=== PATIENT | male | born 1975 | race Caucasian/White ===

== ENCOUNTER 2018-05-14 20:55 | Emergency (ER) | payer SELFPAY, OTHER ==
[2018-05-14] MEDS: KETOROLAC 60 MG INJ IM (22:37)
[2018-05-14 23:02] LABS: ADD UMIC NO; UR ASCORBIC ACID NEGATIVE (NEGATIVE); UR BILIRUBIN (Dip) NEGATIVE (NEGATIVE); UR BLOOD (Dip) NEGATIVE (NEGATIVE); UR CLARITY SLIGHTLY CLOUDY (CLEAR); UR COLOR YELLOW (YELLOW); UR GLUCOSE (Dip) NEGATIVE (NEGATIVE); UR KETONES (Dip) NEGATIVE (NEGATIVE); UR LEUKOCYTE ESTERASE (Dip) NEGATIVE Leu/ul (NEGATIVE); UR NITRITE (Dip) NEGATIVE (NEGATIVE); UR RBC 1 /HPF (0-5); UR SPECIFIC GRAVITY (Dip) 1.013 (1.003-1.030); UR TOTAL PROTEIN (Dip) NEGATIVE (NEGATIVE); UR UROBILINOGEN (Dip) NEGATIVE (NEGATIVE); UR WBC 2 /HPF (0-5)
== END 2018-05-15 00:43 | disposition home or self-care (01) ==
LOC: FTE 05-15 00:43
DX: M54.40 Lumbago with sciatica, unspecified side (principal); G89.29 Other chronic pain; F17.210 Nicotine dependence, cigarettes, uncomplicated
CPT/HCPCS: 72040; 72100; 81001; 81003; 96372; 99284-25

== ENCOUNTER 2018-09-13 05:49 | Emergency (ER) | payer SELFPAY | END 2018-09-13 07:59 | disposition left against medical advice (07) | LOC: E/R 05:49 | DX: Z53.21 Procedure and treatment not carried out due to patient leaving prior to being seen by health care provider (principal) ==

== ENCOUNTER 2018-09-13 08:15 | Emergency (ER) | payer MEDICAID ==
[2018-09-13 09:19] LABS: ADD MAN DIFF? NO
[2018-09-13] MEDS: morphine 4 MG/ML VIAL IV (09:20)
[2018-09-13] MEDS: SOD CHLORIDE 0.9% 1,000 ML IV (09:20)
[2018-09-13] MEDS: ONDANSETRON 4 MG INJ IV (09:20)
[2018-09-13 09:21] LABS: WHITE BLOOD COUNT 10.1 10^3/ul (4.8-10.8)
[2018-09-13 09:21] LABS: BASOPHIL # 0.1 10^3/ul (0.0-0.1); BASOPHILS % 0.6 % (0.0-2.0); EOSINOPHILS # 0.1 10^3/ul (0.0-0.5); EOSINOPHILS % 1.1 % (0.0-7.0); HEMATOCRIT 45.3 % (42.0-52.0); HEMOGLOBIN 14.8 g/dl (14.0-18.0); LYMPHOCYTES % 20.2 % (15.0-51.0); MEAN CORPUSCULAR HEMOGLOBIN 31.2 pg (29.0-33.0); MEAN CORPUSCULAR HGB CONC 32.7 g/dl (32.0-37.0); MEAN CORPUSCULAR VOLUME 95.4 fl (82.0-101.0); MEAN PLATELET VOLUME 9.6 fl (7.4-10.4); MONOCYTE # 0.8 10^3/ul (0.3-0.9); MONOCYTES % 7.8 % (0.0-11.0); NEUTROPHIL # 7.1 10^3/ul (1.6-7.5); NEUTROPHILS % 70.1 % (39.0-77.0); PLATELET COUNT 271 10^3/UL (140-415); RED BLOOD COUNT 4.75 10^6/ul (4.70-6.10); RED CELL DISTRIBUTION WIDTH 12.3 % (11.5-14.5)
[2018-09-13 09:23] LABS: ADD UMIC NO; UR ASCORBIC ACID NEGATIVE (NEGATIVE); UR BILIRUBIN (Dip) NEGATIVE (NEGATIVE); UR BLOOD (Dip) NEGATIVE (NEGATIVE); UR CLARITY CLEAR (CLEAR); UR COLOR YELLOW (YELLOW); UR GLUCOSE (Dip) NEGATIVE (NEGATIVE); UR KETONES (Dip) NEGATIVE (NEGATIVE); UR LEUKOCYTE ESTERASE (Dip) NEGATIVE Leu/ul (NEGATIVE); UR NITRITE (Dip) NEGATIVE (NEGATIVE); UR SPECIFIC GRAVITY (Dip) 1.011 (1.003-1.030); UR TOTAL PROTEIN (Dip) NEGATIVE (NEGATIVE); UR UROBILINOGEN (Dip) NEGATIVE (NEGATIVE)
[2018-09-13 09:40] LABS: INR 0.95; PARTIAL THROMBOPLASTIN TIME 31.5 Sec (23.0-35.0); PROTIME 12.8 Sec (11.9-14.9)
[2018-09-13 09:44] LABS: ALANINE AMINOTRANSFERASE 47 IU/L (13-69); ALBUMIN 4.4 g/dl (3.3-4.9); ALBUMIN/GLOBULIN RATIO 1.41; ALKALINE PHOSPHATASE 97 IU/L (42-121); AMYLASE 66 U/L (11-123); ANION GAP 8 (5-13); ASPARTATE AMINO TRANSFERASE 29 IU/L (15-46); BILIRUBIN,INDIRECT 0.3 mg/dl (0-1.1); BILIRUBIN,TOTAL 0.3 mg/dl (0.2-1.3); BLOOD UREA NITROGEN 14 mg/dl (7-20); CALCIUM 9.4 mg/dl (8.4-10.2); CARBON DIOXIDE 33 mmol/L (21-31); CHLORIDE 102 mmol/L (97-110); CREATININE 0.58 mg/dl (0.61-1.24); Estimated GFR > 60 mL/min (>60); GLUCOSE 96 mg/dl (70-220); LIPASE 49 U/L (23-300); SODIUM 143 mmol/L (135-144); TOTAL PROTEIN 7.5 g/dl (6.1-8.1)
[2018-09-13 09:55] LABS: TROPONIN-I < 0.012 ng/ml (0.000-0.120)
[2018-09-13] MEDS: IOHEXOL 300MG/ML 150 ML BTL (10:06)
[2018-09-13] MEDS: SOD CHLORIDE 0.9% 100 ML (10:06)
[2018-09-13] MEDS: LIDOCAINE/MYLANTA 40 ML BTL PO (11:29)
[2018-09-13] MEDS: FAMOTIDINE 20 MG INJ IV (11:29)
== END 2018-09-13 12:11 | disposition home or self-care (01) ==
LOC: E/R 08:15
DX: R10.84 Generalized abdominal pain (principal)
CPT/HCPCS: 74177; 80053; 81003; 82150; 83690; 84484; 85025; 85610; 85730; 93005; 96374; 96375; 99285-25